=== PATIENT | female | born 1980 | race Hispanic/Latino ===

== ENCOUNTER 2022-02-22 22:41 | Emergency (ER) | payer SELFPAY ==
[2022-02-22] MEDS ORDERED: BENZONATATE 100 MG CAP PO STA (23:18)
[2022-02-23] MEDS ORDERED: BENZONATATE100 MG PO (00:45)
== END 2022-02-23 01:38 | disposition home or self-care (01) ==
LOC: ER 22:47
DX: R05.9 Cough, unspecified (principal)
CPT/HCPCS: 71046; 99283

== ENCOUNTER 2024-02-07 03:09 | Emergency (ER) | payer OTHER ==
[~2024-02-07] VITALS: Ht 160 cm; Wt 79.4 kg
[~2024-02-07 03:09] MED LIST: BENZONATATE100 MG PO
[2024-02-07] MEDS: ALBUTEROL/IPRATROPIUM 3 ML NEB NEB ONE (03:28)
[2024-02-07] MEDS: PREDNISONE 10 MG TAB PO STA (03:29)
[2024-02-07] MEDS: PREDNISONE 20 MG TAB PO STA (03:30)
[2024-02-07 03:56] VITALS: PULSE 85; RESP 18
[2024-02-07 04:13] LABS: INFLUENZAE A&B ANTIGEN (RAPID) NEGATIVE (NEGATIVE); RESPIRATORY SYNC. VIRUS NEGATIVE (NEGATIVE)
[2024-02-07 04:20] LABS: STREPTOCOCCUS GRP A ANTIGEN NEGATIVE (NEGATIVE)
[2024-02-07] MEDS ORDERED: PREDNISONE20 MG PO (04:28)
[2024-02-07] MEDS ORDERED: VENTOLIN HFA18 GM INH (04:28)
[2024-02-07] MEDS ORDERED: AZITHROMYCIN250 MG PO (04:28)
[2024-02-07 04:36] VITALS: PULSE 87; RESP 18; TEMP 98.2; O2SAT 98
== END 2024-02-07 04:38 | disposition home or self-care (01) ==
LOC: ER 03:14
DX: R05.9 Cough, unspecified (principal); J06.9 Acute upper respiratory infection, unspecified; J01.90 Acute sinusitis, unspecified; Z11.52 Encounter for screening for COVID-19
CPT/HCPCS: 83518; 87070; 87400; 87420; 99283; J7512; U0002